=== PATIENT | male | born 2005 | race Caucasian/White ===

== ENCOUNTER 2023-09-20 13:15 | Outpatient (CLI) | payer OTHER, SELFPAY | END 2023-09-20 13:16 | disposition home or self-care (01) | LOC: AMB 09-24 00:51 | PROVIDERS: Visit Provider Family Medicine | DX: R55 Syncope and collapse (principal) | CPT/HCPCS: A0425; A0427 ==

== ENCOUNTER 2023-09-20 14:07 | Emergency (ER) | payer OTHER, SELFPAY ==
--- NOTE | 2023-09-20 14:09 | ED_ITS ---
HPI - General Adult General Time Seen by Provider: 14:09 Date Seen: 09/20/23 Chief complaint: Syncope/Fainted Stated complaint: Syncopal Time Seen by Provider: 09/20/23 14:08 Source: patient, RN notes reviewed and old records reviewed Mode of arrival: ambulatory Limitations: no limitations History of Present Illness HPI narrative: 18-year-old male who presents today for syncopal episode. Patient has been sick for couple of days with cough cold symptoms, no vomiting or diarrhea, appetite has not been could. Today he felt like eating, went to the cafeteria and after eating, cut advocate more food, became lightheaded. He sat down felt a little better, subsequently got up, became nauseated lightheaded, passed out and vomited. No diarrhea. Denies preceding palpitations or chest pain. Related Data Home Medications Medication Instructions Recorded Confirmed No Known Home Medications 09/20/23 09/20/23 Allergies Allergy/AdvReac Type Severity Reaction Status Date / Time tree nut Allergy Intermediate Unknown Verified 09/20/23 14:19 Exam Narrative: Exam Narrative: General: Well-developed and well-nourished, no acute distress Head: Atraumatic and normocephalic Eyes: Pupils are equal reactive, extraocular motions intact, conjunctiva clear ENT: External nose and ears are normal, posterior pharynx without erythema or exudate Neck: No midline cervical tenderness, full spontaneous range of motion the neck, trachea midline, no adenopathy Heart: Regular rate and rhythm no murmurs or thrills Lungs: Clear to auscultation bilaterally without wheezes or crackles Abdomen: Soft, nontender, nondistended with active bowel sounds Musculoskeletal: No tenderness, deformity, or edema Neurologic: Awake, alert, and oriented x3, no gross focal neurologic deficits, cranial nerves intact as tested Psych: Mood and affect are appropriate Skin: No rashes Const: Vital Signs, click to edit/add: Vital Signs - 24 hr 09/20/23 14:19 09/20/23 15:17 Temperature 98.7 F Pulse Rate [Pulse Oximeter] 66 Pulse Rate [orthos tatic lying Pulse Oximeter] 60 Pulse Rate [orthos tatic sitting Puls e Oximeter] 68 Pulse Rate [orthos tatic standing Pul se Oximeter] 64 Respiratory Rate 16 Blood Pressure [Le ft Upper Arm] 125/72 Blood Pressure [or thostatic lying Ri ght Arm] 118/72 Blood Pressure [or thostatic sitting Right Arm] 116/77 Blood Pressure [or thostatic standing Right Arm] 121/54 L Pulse Oximetry 100 Oxygen Delivery Me thod Room Air Course Course ED Course: Patient seen examined, prior records reviewed. Patient presents today with syncopal episode in the setting of being up and ambulating. No preceding chest pain, palpitation or shortness of breath, does no recent upper respiratory illness with decreased appetite although has been drinking lots of water. On exam here, patient is awake alert, no tachycardia or hypoxia. Low risk by Wells criteria and PERC negative, pulmonary embolism unlikely as cause of syncopal episode today. Consider dysrhythmia although no preceding palpitations with this episode. Most likely patient has viral syndrome and may be little bit dehydrated. IV fluids ordered, labs ordered, EKG will be performed and anticipate discharge. Reevaluation(s) Time of Reevaluation #1: 15:26 Reevaluation #1: Labs ordered and independently interpreted by me with normal white blood cell count, normal basic metabolic panel, negative respiratory panel. Patient is stable to discharge with outpatient follow-up Vital Signs Vital signs: Initial Vital Signs Temperature 98.7 F 09/20/23 14:19 Temperature Source Temporal Artery Scan 09/20/23 14:19 Pulse Rate 66 09/20/23 14:19 Respiratory Rate 16 09/20/23 14:19 Blood Pressure 125/72 09/20/23 14:19 Blood Pressure Mean 89 09/20/23 14:19 Pulse Oximetry 100 09/20/23 14:19 Oxygen Delivery Method Room Air 09/20/23 14:19 Vital Signs Temperature 98.7 F 09/20/23 14:19 Pulse Rate 66 09/20/23 14:19 Respiratory Rate 16 09/20/23 14:19 Blood Pressure 125/72 09/20/23 14:19 Pulse Oximetry 100 09/20/23 14:19 Oxygen Delivery Method Room Air 09/20/23 14:19 Temperature 98.7 F 09/20/23 14:19 Pulse Rate 60 09/20/23 15:17 Respiratory Rate 16 09/20/23 14:19 Blood Pressure 118/72 09/20/23 15:17 Pulse Oximetry 100 09/20/23 14:19 Oxygen Delivery Method Room Air 09/20/23 14:19 Medications Administered Medications: Generic Name Dose Route Start Last Admin Trade Name Freq PRN Reason Stop Dose Admin Sodium Chloride 1,000 mls @ 1,000 mls/hr 09/20/23 14:45 09/20/23 14:43 0.9 % Sodium Chloride 1000 Ml IV 09/20/23 15:44 1,000 mls/hr .Q1H JOYCELYN Administration Medical Decision Making Lab Data Labs: Lab Results 09/20/23 09/20/23 Range/Units 14:14 14:45 WBC 6.46 (4.50-11.00) K/uL RBC 4.90 (4.30-5.90) m/uL Hgb 14.2 (13.5-17.5) gm/dL Hct 43.1 (37.0-53.0) % MCV 88 (80-100) fL MCH 29 (26-34) pg MCHC 33 (32-36) gm/dL RDW Coeff of Jarrod 13.1 (11.5-15.5) % Plt Count 230 (140-440) K/uL Neut % (Auto) 73.5 H (42.0-72.0) % Lymph % (Auto) 13.0 L (20-44) % [place] % (Auto) 12.1 H (0.0-11.0) % Eos % (Auto) 0.6 (0.0-7.0) % Baso % (Auto) 0.2 (0.0-3.0) % Neut # (Auto) 4.70 (1.7-7.0) K/uL Lymph # (Auto) 0.80 L (0.90-2.90) K/uL [place] # (Auto) 0.80 (0.00-0.90) K/UL Eos # (Auto) 0.04 (0.00-0.50) K/uL Baso # (Auto) 0.01 (0.00-0.30) K/uL Abs Immat Gran (auto) 0.04 (0.00-0.30) K/uL Imm/Tot Granulo (auto) 0.6 % Sodium 136 (135-149) mmol/L Potassium 4.1 (3.6-5.1) mmol/L Chloride 102 (96-114) mmol/L Carbon Dioxide 28 (20-32) mmol/L Anion Gap 6 L (7-15) mEq/L BUN 14 (5-24) mg/dL Creatinine 1.0 (0.5-1.5) mg/dL Estimated Creat Clear 110.17 Estimated GFR 111 ml/min Glucose 120 H (60-115) mg/dL Calcium 9.2 (8.4-10.6) mg/dL SARS-CoV-2 (PCR) Negative SARS-CoV-2 (Negative) Influenza Type A (PCR) Negative PCR FLU A (Negative) Influenza Type B (PCR) Negative PCR FLU B (Negative) RSV (PCR) Negative PCR RSV (Negative) ECG Data Attestation: I personally reviewed and interpreted this ECG as follows: Prior ECG tracings: not available for review Interpretation: Performed at 2:45 p.m. demonstrates sinus rhythm rate 59, no acute ST elevations or depressions, normal intervals, normal axis, CO 194, QTC 399. No prior for comparison. Discharge Plan Discharge Clinical Impression: Syncope Patient Disposition: Home, Self-Care Condition: Stable Instructions: Syncope (DC) Additional Instructions: Lots of fluids and rest Tylenol and ibuprofen as needed for fever or pain Activity Level: No Restrictions Discharge Diet: Regular Prescriptions: No Action No Known Home Medications Follow Up/Referrals: Provider,Not a Local [Primary Care Provider] - Stand Alone Forms: [employer] Info Instructions
[2023-09-20 14:19] VITALS: BP 125/72; PULSE 66; RESP 16; TEMP 37.1; O2SAT 100; BMI 29.0
[2023-09-20] MEDS: 0.9 % SODIUM CHLORIDE 1000 ml 1,000 ML IV (14:43)
[2023-09-20 14:57] LABS: PCR FLU A Negative PCR FLU A (Negative); PCR FLU B Negative PCR FLU B (Negative); PCR RSV Negative PCR RSV (Negative); SARS PCR* Negative SARS-CoV-2 (Negative)
[2023-09-20 15:09] LABS: Basophils Absolute Auto 0.01 K/uL (0.00-0.30); Basophils Percent Auto 0.2 % (0.0-3.0); Eosinophils Absolute Auto 0.04 K/uL (0.00-0.50); Eosinophils Percent Auto 0.6 % (0.0-7.0); Hematocrit 43.1 % (37.0-53.0); Hemoglobin* 14.2 gm/dL (13.5-17.5); Immature Granulocytes Abs Auto 0.04 K/uL (0.00-0.30); Immature Granulocytes Pct Auto 0.6 %; Mean Corpuscular HGB Conc 33 gm/dL (32-36); Mean Corpuscular Hemoglobin 29 pg (26-34); Mean Corpuscular Volume 88 fL (80-100); Monocytes Percent Auto 12.1 % (0.0-11.0); Neutrophils Percent Auto 73.5 % (42.0-72.0); Platelet Count* 230 K/uL (140-440); RDW Coefficient of Variation % 13.1 % (11.5-15.5); White Blood Count* 6.46 K/uL (4.50-11.00)
[2023-09-20 15:11] LABS: Chloride* 102 mmol/L (96-114); Potassium* 4.1 mmol/L (3.6-5.1); Sodium* 136 mmol/L (135-149)
[2023-09-20 15:13] LABS: Est. Creatinine Clearance* 110.17; Estimated Glomerular Filt Rate 111 ml/min
[2023-09-20 15:14] LABS: Anion Gap 6 mEq/L (7-15); Blood Urea Nitrogen* 14 mg/dL (5-24); Calcium* 9.2 mg/dL (8.4-10.6); Carbon Dioxide* 28 mmol/L (20-32); Glucose* 120 mg/dL (60-115)
[2023-09-20 15:17] VITALS: BP 116/77; BP 118/72; BP 121/54; PULSE 60; PULSE 64; PULSE 68
[2023-09-20 15:21] LABS: Slide Review Reflex No
== END 2023-09-20 15:33 | disposition home or self-care (01) ==
PROVIDERS: Emergency Provider Family Medicine
DX: R55 Syncope and collapse (principal)
CPT/HCPCS: 36415; 80048; 85025; 87631; 93005; 96360; 99284; J7030

== ENCOUNTER 2024-06-09 09:35 | Outpatient (CLI) | payer OTHER, SELFPAY | END 2024-06-09 09:36 | disposition home or self-care (01) | LOC: INJ CL 09:36 | PROVIDERS: Visit Provider Family Medicine | DX: M54.16 Radiculopathy, lumbar region (principal); M51.26 Other intervertebral disc displacement, lumbar region | CPT/HCPCS: 64483; J1100; Q9966 ==